=== PATIENT | female | born 1975 | race Caucasian/White ===

== ENCOUNTER 2018-06-27 14:51 | Emergency (ER) | payer OTHER ==
[~2018-06-27] VITALS: Ht 167.6 cm; Wt 57.7 kg
[~2018-06-27 14:51] MED LIST: FLUT16H NASAL; LORA10TA7 PO
[2018-06-27] MEDS ORDERED: SODIUM CHLORIDE 0.9% 1,000 ML IV ONE (15:45)
[2018-06-27] MEDS ORDERED: KETOROLAC TROMETHAMINE 30 MG/ML VIAL IVP ONE (15:45)
[2018-06-27] MEDS ORDERED: ONDANSETRON HCL 4 MG/2 ML VIAL IVP ONE (15:45)
[2018-06-27] MEDS ORDERED: DICYCLOMINE HCL 20 MG TABLET PO ONE (15:45)
[2018-06-27 15:49] LABS: BASOPHILS % (AUTO) 0.6 % (0.0-2.0); EOSINOPHILS % (AUTO) 7.1 % (1.0-6.0); HEMATOCRIT 35.1 % (36-46); HEMOGLOBIN 11.8 g/dL (12.0-16.0); LYMPHOCYTES # (AUTO) 1.1 K/uL (1.0-4.8); LYMPHOCYTES % (AUTO) 22.1 % (22.0-44.0); MEAN CORPUSCULAR HEMOGLOBIN 30.3 pg (26.0-34.0); MEAN CORPUSCULAR HGB CONC 33.5 G/dL (31.0-37.0); MEAN CORPUSCULAR VOLUME 90 fL (80-100); MONOCYTES # (AUTO) 0.5 K/uL (0.1-1.0); MONOCYTES % (AUTO) 10.2 % (2.0-9.0); PLATELET COUNT (AUTO) 240 K/uL (150-450); RED BLOOD CELL COUNT(AUTO) 3.89 MIL/uL (4.00-5.20); RED CELL DISTRIBUTION WIDTH 13.3 % (11.5-14.5)
[2018-06-27 16:03] LABS: ANION GAP 8 mmol/L (8-16); CARBON DIOXIDE 29 mmol/L (22-29); CHLORIDE 99 mmol/L (98-107); CREATININE 0.79 mg/dL (0.60-1.30); GLOMERULAR FILTR. RATE CALC > 60 mL/min (>60); GLUCOSE,RANDOM 108 mg/dL (70-110); POTASSIUM 3.1 mmol/L (3.5-5.1); SODIUM SERUM 136 mmol/L (136-145); UREA NITROGEN, BLOOD 11 mg/dL (7-18)
[2018-06-27 16:14] LABS: ALANINE AMINOTRANSFERASE 34 U/L (12-78); ALBUMIN 4.1 g/dL (3.4-5.0); ALKALINE PHOSPHATASE 58 U/L (46-116); ASPARTATE AMINOTRANSFERASE 24 U/L (15-37); BILIRUBIN,TOTAL 0.4 mg/dL (0.1-1.0); HCG,QUANTITATIVE < 1 mIU/mL (0-6); LIPASE 106 U/L (73-393); TOTAL PROTEIN, SERUM 8.2 g/dL (6.4-8.2)
[2018-06-27 17:14] LABS: APPEARANCE,URINE CLOUDY (CLEAR); BILIRUBIN,URINE NEGATIVE (NEGATIVE); GLUCOSE, URINE (UA) NEGATIVE (NEGATIVE); KETONES,URINE NEGATIVE (NEGATIVE); LEUKOCYTE ESTERASE ,URINE NEGATIVE (NEGATIVE); NITRATE,URINE NEGATIVE (NEGATIVE); OCCULT BLOOD,URINE NEGATIVE (NEGATIVE); PROTEIN,URINE SEE CONFIRM (NEGATIVE)
[2018-06-27] MEDS ORDERED: POTASSIUM CHLORIDE 20 MEQ ER TABLET PO ONE (17:15)
[2018-06-27 17:20] VITALS: BP 109/64
[2018-06-27 17:25] LABS: SULFOSALICYLIC ACID,URINE 2+ (Negative)
[2018-06-27 17:26] LABS: BACTERIA,URINE Moderate /HPF (None Seen); RBC,URINE None Seen /HPF (0-2)
[2018-06-27 17:27] LABS: AMORPHOUS SEDIMENT,UR Few /LPF (None Seen); SQUAMOUS EPITHELIAL CELL,UR Few /LPF (None Seen); WBC,URINE 0-2 /HPF (0-5)
== END 2018-06-27 18:02 | disposition home or self-care (01) ==
LOC: EMS 14:52
DX: E87.6 Hypokalemia (principal); R10.30 Lower abdominal pain, unspecified; Z98.51 Tubal ligation status; Z79.899 Other long term (current) drug therapy
CPT/HCPCS: 36415; 80053; 81001; 81002; 83690; 84702; 85025; 87086; 96374; 96375; 99284; J1885; J2405; J7030

== ENCOUNTER 2020-03-04 11:42 | Emergency (ER) | payer OTHER ==
[~2020-03-04] VITALS: Ht 167.6 cm; Wt 57.3 kg
[2020-03-04] MEDS ORDERED: PLEC3TAB PO (11:49)
[2020-03-04 11:57] VITALS: BP 119/73
[2020-03-04] MEDS ORDERED: ACETAMINOPHEN 500 MG TABLET PO ONE (12:30)
== END 2020-03-04 13:00 | disposition home or self-care (01) ==
LOC: EEVIPCON 11:48 → EMS 11:48
DX: U07.1 COVID-19 (principal); R51 Headache
CPT/HCPCS: 99283; U0003

== ENCOUNTER 2020-03-08 14:31 | Emergency (ER) | payer OTHER ==
[~2020-03-08] VITALS: Ht 167.6 cm; Wt 56.8 kg
[~2020-03-08 14:31] MED LIST changes: -LORA10TA7 PO; +PLEC3TAB PO
[2020-03-08 16:51] LABS: ABG A-A DIFF O2 10.3 mmHg (10-20.0); ABG BASE EXCESS -0.4 mmol/L (-2.0-3.0); ABG CARBOXYHEMOGLOBIN 0.3 % (0.0-1.5); ABG HCO3 24.6 mmol/L (22.0-26.0); ABG METHEMOGLOBIN 0.1 % (0.0-1.5); ABG OXYGEN CONTENT 15.4 mL/dL (15.0-23.0); ABG OXYGEN SATURATION 97.6 % (95.0-98.0); ABG OXYHEMOGLOBIN 97.2 % (94.0-100.0); ABG PCO2 34 mmHg (35-45); ABG PH 7.461 (7.35-7.450); ABG TOTAL HEMOGLOBIN 11.2 G/dL (12.0-18.0); SOURCE, BLOOD GAS ARTERIAL; TEMPERATURE, FAHRENHEIT, BG 99.3 FAHREN (96.0-98.6)
[2020-03-08 16:52] LABS: O2 DEVICE,BLOOD GAS ROOM AIR (ROOM AIR); SITE, BLOOD GAS LFT RADIAL
[2020-03-08] MEDS ORDERED: ACETAMINOPHEN 325 MG TABLET PO ONE (17:15)
[2020-03-08 18:55] VITALS: BP 120/69
== END 2020-03-08 19:32 | disposition home or self-care (01) ==
LOC: EMS 14:36
DX: R05 Cough (principal); R06.00 Dyspnea, unspecified; R50.9 Fever, unspecified; Z20.828 Contact with and (suspected) exposure to other viral communicable diseases
CPT/HCPCS: 36600; 82805; 93005; 71045-TC

== ENCOUNTER 2025-08-03 11:05 | Emergency (ER) | payer OTHER ==
[~2025-08-03] VITALS: Ht 167.6 cm; Wt 59.1 kg
[~2025-08-03 11:05] MED LIST changes: -FLUT16H NASAL; +FLUT16SP NASAL; -PLEC3TAB PO; +PLEC3TAB2 PO
[2025-08-03 11:08] VITALS: BP 137/72; PULSE 70; RESP 18; TEMP 98.2; O2SAT 99
[2025-08-03] MEDS: DiphenhydrAMINE HCL 25 MG/10 ML SOLUTION UDCUP PO ONE (12:23)
[2025-08-03] MEDS ORDERED: DIPH25CA85 PO (12:30)
[2025-08-03] MEDS ORDERED: PRED20TA3 PO (12:30)
== END 2025-08-03 12:38 | disposition home or self-care (01) ==
LOC: EMS 11:05
DX: L23.9 Allergic contact dermatitis, unspecified cause (principal); K58.9 Irritable bowel syndrome, unspecified; Z79.52 Long term (current) use of systemic steroids; Z98.51 Tubal ligation status
CPT/HCPCS: 99283; J7512